=== PATIENT | female | born 1965 | race Caucasian/White ===

== ENCOUNTER 2023-02-08 15:32 | Emergency (ER) | payer OTHER | END 2023-02-08 17:20 | disposition home or self-care (01) | LOC: CSHERS 15:32 | DX: S60.362A Insect bite (nonvenomous) of left thumb, initial encounter (principal); L03.114 Cellulitis of left upper limb; W57.XXXA Bitten or stung by nonvenomous insect and other nonvenomous arthropods, initial encounter | CPT/HCPCS: 99283 ==